=== PATIENT | male | born 1940 | race Caucasian/White ===

== ENCOUNTER 2017-09-28 03:34 | Observation (INO) | payer OTHER ==
[~2017-09-28] VITALS: Ht 165.1 cm; Wt 83.0 kg
--- NOTE | 2017-09-28 16:49 | Admission Core Measures ---
Acute Coronary Syndrome (CM) ACS Core Measures Acute Coronary Syndrome Diagnosis No Congestive Heart Failure (NEW) CHF Core Measures Congestive Heart Failure Diagnosis No Cerebrovascular Accident (NEW) CVA Core Measures CVA/TIA Diagnosis No Venous Thromboembolism VTE Core Roman (View Protocol) VTE Risk Factors Surgery No Mechanical VTE Prophylaxis d/t N/A MechProphylax Ordered No VTE Pharm Prophylaxis d/t NA PharmProphylax ordered Problem List As ranked by this Provider includes Assessment & Plan 1. Primary hyperparathyroidism
--- NOTE | 2017-09-28 16:53 | Patient Discharge Instructions ---
Discharge Instructions General Discharge Information You were seen/treated for: PRIMARY HYPERPARATHYROIDISM You had these procedures: PARATHYROIDECTOMY Watch for these problems: FEVER OVER 101 DRAINAGE FROM WOUND REDNESS AROUND WOUND MUSCLE SPASMS Call Surgeon to remove: WOUND CHECK IN 1 WEEK No bath, but you may shower: Yes Other wound care: DAILY DRY DRESSING CHANGE Diet Continue normal diet: Yes Activity Activity Self Limited: Yes Acute Coronary Syndrome Inclusion Criteria At DC or during hospital stay patient has or had the following: ACS DIAGNOSIS No Discharge Core Measures Meds if any: Prescribed or Continued at Discharge Meds if any: NOT Prescribed or Continued at Discharge Congestive Heart Failure Inclusion Criteria At DC or during hospital stay patient has or had the following: CHF DIAGNOSIS No Discharge Core Measures Meds if any: Prescribed or Continued at Discharge Meds if any: NOT Prescribed or Continued at Discharge Cerebrovascular accident Inclusion Criteria At DC or during hospital stay patient has or had the following: CVA/TIA Diagnosis No Discharge Core Measures Meds if any: Prescribed or Continued at Discharge Meds if any: NOT Prescribed or Continued at Discharge Venous thromboembolism Inclusion Criteria VTE Diagnosis No VTE Type NONE VTE Confirmed by (Test) NONE Discharge Core Measures - Per Current guidelines, there needs to be overlap - treatment for the first 5 days of Warfarin therapy. - If discharged on Warfarin prior to 5 days of - overlap therapy, the patient will need to be - assessed for post discharge needs including - *Post discharge parental anticoagulation - *Warfarin and/or parental anticoagulation education - *Follow up date to check INR post discharge At least 5 days overlap therapy as Inpatient No Meds if any: Prescribed or Continued at Discharge Note: Overlap Therapy is Warfarin and Anticoagulant Meds if any: NOT Prescribed or Continued at Discharge
[2017-09-28 20:00] VITALS: BP 130/82
[2017-09-28 22:00] VITALS: BP 130/90
[2017-09-29 01:07] VITALS: BP 122/82
[2017-09-29 08:11] VITALS: BP 120/78
[2017-09-29] MEDS ORDERED: PERCOCET 5-3251 EACH PO (08:40)
--- NOTE | 2017-09-29 08:47 | PN- General Surgery ---
Subjective Subjective: No acute overnight events reported. Patient acknowledges some throat discomfort but denies difficulty breathing, speaking or swallowing. Denies chest pain and shortness of breath. Has yet to ambulate this am. Has been voiding. Objective Vital Signs and I&Os Vital Signs Date Time Temp Pulse Resp B/P B/P Pulse O2 O2 Flow FiO2 Mean Ox Delivery Rate 09/29 0811 97.6 73 16 120/78 94 Room Air 09/29 0107 98.0 83 20 122/82 93 Room Air 09/28 2200 97.8 84 20 130/90 95 Room Air 09/28 2000 97.4 74 18 130/82 96 Room Air Intake & Output 09/29 1600 09/29 0800 09/29 0000 09/28 1600 09/28 0800 09/28 0000 Intake Total 240 1920 Output Total 1000 1200 Balance -760 720 Intake, IV 1520 Intake, Oral 240 400 Number 0 Bowel Movements Output, Other 50 Output, Urine 1000 1150 Patient 183 lb 183 lb Weight Physical Exam: General: Alert and oreinted x3, no acute distress Cardiac: RRR, s1s2 Pulm: Non-labored respiratory effort, cta HEENT: Dressing dry and intact, no evidence of hematoma. No jvd. No tracheal deviation. Voice clear. Extremities: Moves all extremities, nv status intact. Bialteral calves soft and non-tender Assessment/Plan Assessment/Plan This is a 76 year old male POD 1 s/p parathyroidectomy, placed in observation status overnight for serial blood work and airway monitoring following neck surgery. -Follow up am labs -Continue clear liquids for breakfast, can advance texture as tolerated -Anticipate dc to home today Will discuss plan of care with Dr. Fuentes Core Measures Venous Thromboembolism VTE Risk Factors Surgery No Mechanical VTE Prophylaxis d/t N/A MechProphylax Ordered No VTE Pharm Prophylaxis d/t NA PharmProphylax ordered
--- NOTE | 2017-09-30 10:26 | Operative Report ---
Operative/Inv Procedure Report Surgery Date: 09/28/17 Name of Procedure: Parathyroidectomy (left lower - adenoma) Pre-Operative Diagnosis: primary hyperparathyroidism Post-Operative Diagnosis: same Estimated Blood Loss: scant Surgeon/Manufacturing Specialist: Gina ANDREWS,Mat KINGSTON Anesthesia: general endotracheal tube Operative/Procedure Note Note: Patient was placed on the OR table supine, over the thyroid bar, after successful induction of general anesthesia and the timeouts, and setting up the NIMS electrodes for monitoring, the patient's neck from chin to chest were clipped prepped and draped in the usual sterile fashion. A PTH level was drawn at this time, it was 147.5. We had already marked a skin crease near the cricoid in Same Day, and then infiltrated local anesthetic and then made this incision with a 15 blade, extending within the medial borders of the sternocleidomastoid muscles, favoring the left . The incision was deepened through the subcutaneous fat and subplatysmal flaps, preserving the underlying anterior jugular veins, were made superiorly to the thyroid cartilage and inferiorly not quite to the sternal notch. The midline was identified between the strap muscles and opened vertically and then using an Allis clamp first, the sternohyoid and then the sternal thyroid muscles were and then retracted laterally to the left, off the thyroid towards the carotid sheath, at this point the dissection was continued using the Harmonic scalpel. At the deep inferior lateral aspect of the lower pole, we searched for the parathyroid gland /adenoma. I saw a rounded kidney-shaped nodule surrounded by fat, about 1.5 cm, we gently dissected circumferentially preserving the blood supply, also avoiding the recurrent nerve which was close here, and then before excising we had anesthesia draw another PTH, then we excised it and sent it to pathology, and angelito another level in 10 min. It dropped to 23.5 after, more than 80%, indicating success. So we checked for hemostasis and then closed by first reapproximating the strap muscles over the trachea in the middle paying care not to injure those jugular veins on either side, and then the platysma was reapproximated with a running 3-0 Vicryl suture as well, then the skin was reapproximated with a running subcuticular 4-0 Biosyn suture followed by Mastisol Steri-Strips Telfa and Tegaderm. Estimated blood loss was minimal lap and sponge counts were correct wound expectancy was clean, IV fluids crystalloid , complications none, patient tolerated the procedure well was awakened extubated and returned to the recovery room in satisfactory condition where once more awake, was able to phonate without any significant hoarseness.
== END 2017-09-29 14:20 ==
LOC: STS 03:34 → 2NB 16:31 → PACUH 16:31 → ENRESERV 18:39 → ENTRNSPT 19:44 → EDTRNSPT 19:53 → EDTRNSPTSTS 19:53 → 2NB 20:00 → CMPTRNSPT 20:14 → ENTRNSPT 09-29 14:12 → EDTRNSPT 09-29 14:16 → EDTRNSPTSTS 09-29 14:16 → 2NB 09-29 14:20 → CMPTRNSPT 09-29 14:26 → STS 12-28 07:00
DX: D35.1 Benign neoplasm of parathyroid gland (principal); G47.33 Obstructive sleep apnea (adult) (pediatric); K21.9 Gastro-esophageal reflux disease without esophagitis; N40.0 Benign prostatic hyperplasia without lower urinary tract symptoms
CPT/HCPCS: 6040; 36415; 96372; C9399; G0378; J0131; J0690; J1100; J1644; J2550; J7042